=== PATIENT | female | born 1965 | race Caucasian/White ===

== ENCOUNTER 2017-04-25 14:07 | Emergency (ER) | payer SELFPAY ==
[~2017-04-25] VITALS: Ht 167.6 cm; Wt 67.9 kg
[2017-04-25] MEDS ORDERED: PROZAC20 MG PO (15:39)
[2017-04-25] MEDS ORDERED: LEVETIRACETAM500 MG PO (15:40)
[2017-04-25] MEDS ORDERED: COMBIVENT RESPIM4 GM IH (15:42)
[2017-04-25] MEDS ORDERED: OMEPRAZOLE40 M1 PO (15:43)
[2017-04-25] MEDS ORDERED: SEROQUEL100 MG PO (15:44)
[2017-04-25] MEDS ORDERED: HYDROXYZINE PAM50 MG PO (15:44)
[2017-04-25 15:54] LABS: HEMATOCRIT 39.6 % (36.0-46.0); MCH 30.3 PG (29.0-34.0); MCHC 33.6 G/DL (30.0-36.0); MCV 90.2 FL (83-99); MEAN PLAT.VOLUME 8.9 uM^3 (9.5-12.4); PLATELET COUNT 376 K/uL (156-360); RBC DIS.WIDTH-CV 13.4 % (11.8-14.6); RBC DIS.WIDTH-SD 44.3 % (39-53); RED BLOOD COUNT 4.39 M/uL (3.80-5.20); WHITE BLOOD COUNT 8.3 K/uL (4.1-10.2)
[2017-04-25 16:04] LABS: CHLORIDE 105 mEq/L (99-109); POTASSIUM 3.9 mEq/L (3.7-5.4); SODIUM 140 mEq/L (136-147)
[2017-04-25 16:06] LABS: GLUCOSE 105 mg/dL (70-99)
[2017-04-25 16:07] LABS: ANION GAP 9 MEQ/L (2-14)
[2017-04-25 16:09] LABS: GFR ESTIMATE (CALCULATED) > 59 mL/min/
[2017-04-25 16:10] LABS: UREA NITROGEN (BUN) 15 mg/dL (9-23)
[2017-04-25 17:00] VITALS: BP 104/74
[2017-04-26] MEDS ORDERED: PREDNISONE20 MG PO (12:28)
[2017-04-26] MEDS ORDERED: PROVENTIL HFA6.7 GM IH (12:28)
[2017-04-26] MEDS ORDERED: ZITHROMAX Z-PA250 MG PO (12:28)
== END 2017-04-25 17:00 | disposition left against medical advice (07) ==
LOC: EME 14:07
PROVIDERS: Physician Assistant
DX: R07.89 Other chest pain (principal); J44.9 Chronic obstructive pulmonary disease, unspecified; F41.9 Anxiety disorder, unspecified; Z86.73 Personal history of transient ischemic attack (TIA), and cerebral infarction without residual deficits; F17.200 Nicotine dependence, unspecified, uncomplicated; Z88.0 Allergy status to penicillin
CPT/HCPCS: 71020; 80048; 85027; 85379; 93005; 99281; 99283